=== PATIENT | female | born 1990 | race Caucasian/White ===

== ENCOUNTER → 2019-04-28 | Outpatient (REF) | payer OTHER, MEDICAID ==
[~2019-04-28] MED LIST: IBUP80TA PO; MAPA500T17 PO; MOTR200T44 PO; PRENTAB9 PO; TYLE167L PO
[2019-04-28 19:21] LABS: HEMATOCRIT 39.9 % (36.0-47.0); HEMOGLOBIN 12.9 g/dl (12.0-15.5); MEAN CORPUSCULAR HEMOGLOBIN 32.3 pg (27.0-33.0); MEAN CORPUSCULAR HGB CONC 32.3 g/dl (32.0-36.5); MEAN CORPUSCULAR VOLUME 99.8 fl (80.0-96.0); PLATELET COUNT, AUTOMATED 258 10^3/uL (150-450); WHITE BLOOD COUNT 11.3 10^3/uL (4.0-10.0)
[2019-04-30 11:07] LABS: HIV 1&2 SCREEN CENTAUR NEGATIVE (NEGATIVE); RUBELLA IgG QUALITATIVE IMMUNE (IMMUNE)
[2019-04-30 13:08] LABS: HEPATITIS C VIRUS ABY INDEX 0.1 INDEX (<0.8)
== END ==
LOC: M LAB REF 18:12
PROVIDERS: ATTEND Nurse Practitioner Women's Health
DX: Z34.82 Encounter for supervision of other normal pregnancy, second trimester (principal)

== ENCOUNTER → 2019-05-23 | Outpatient (CLI) | payer MEDICAID | LOC: M PLALAB 13:13 | PROVIDERS: ATTEND Nurse Practitioner Women's Health | DX: Z34.82 Encounter for supervision of other normal pregnancy, second trimester (principal) ==

== ENCOUNTER → 2019-07-02 | Outpatient (REF) | payer OTHER | LOC: M LAB REF 12:19 | PROVIDERS: ATTEND Obstetrics & Gynecology | DX: Z34.83 Encounter for supervision of other normal pregnancy, third trimester (principal) ==

== ENCOUNTER 2019-07-30 20:26 | Inpatient (IN) | payer OTHER ==
[~2019-07-30] VITALS: Ht 175.3 cm; Wt 107.4 kg
[2019-07-30 20:48] VITALS: BP 130/75
[2019-07-30] MEDS: LR 1,000 ML IV SCH (21:08)
[2019-07-30] MEDS ORDERED: LR 800 ML IV ONE (21:15)
[2019-07-30] MEDS ORDERED: miSOPROStol 50 MCG 1/2 TAB (S0191) PO ONE (21:15)
[2019-07-30 21:42] LABS: HEMATOCRIT 34.7 % (36.0-47.0); HEMOGLOBIN 11.5 g/dl (12.0-15.5); MEAN CORPUSCULAR HEMOGLOBIN 31.5 pg (27.0-33.0); MEAN CORPUSCULAR HGB CONC 33.1 g/dl (32.0-36.5); MEAN CORPUSCULAR VOLUME 95.1 fl (80.0-96.0); PLATELET COUNT, AUTOMATED 335 10^3/uL (150-450); RED BLOOD COUNT 3.65 10^6/uL (4.00-5.40); WHITE BLOOD COUNT 15.8 10^3/uL (4.0-10.0)
[2019-07-30 22:21] VITALS: BP 115/75
[2019-07-31] VITALS (58 sets, daily range): BP systolic 98–137; BP diastolic 56–84
[2019-07-31] MEDS ORDERED: miSOPROStol 50 MCG 1/2 TAB (S0191) PO SCH (02:00)
[2019-07-31] MEDS: LR 1,000 ML IV SCH ×4 (05:08→18:40)
[2019-07-31] MEDS ORDERED: OXYTOCIN DRIP 30 UNITS in IV 1 EA IV SCH ×2 (08:00→21:55)
[2019-07-31] MEDS ORDERED: FENTANYL 2MCG/ML ROPIVACAINE 0.2% IN 0.9% NACL 100ML IVBAG As Ordered ONE ×2 (11:08→19:10)
[2019-07-31] MEDS: FENTANYL/ROPIVACAINE/NACL BAG 100 ML EPIDURAL SCH ×2 (11:37→19:10)
[2019-07-31] MEDS ORDERED: EPIDURAL COMMENT XX SCH (12:15)
[2019-07-31] MEDS ORDERED: ePHEDrine SULFATE 25 MG/5 ML(5MG/ML) SYRINGE IV PRN (12:15)
[2019-07-31] MEDS ORDERED: ONDANSETRON 4MG/2ML VIAL (J2405) IV PRN (12:15)
[2019-07-31] MEDS ORDERED: diphenhydrAMINE INJ 50MG/ML VIAL (J1200) IV PRN (12:15)
[2019-07-31] MEDS ORDERED: EPIDURAL/PCA KEYS XX PRN (12:15)
[2019-07-31] MEDS ORDERED: NALOXONE INJ 0.4 MG/1 ML VIAL (J2310) IV PRN (12:15)
[2019-07-31] MEDS ORDERED: REFRIGERATOR IV KEYS XX PRN (12:15)
[2019-07-31] MEDS ORDERED: LACTATED RINGER'S 1000 ML IV PRN (12:15)
[2019-07-31] MEDS ORDERED: ACETAMINOPHEN TAB 650MG DOSE (2X325MG) PO PRN (22:00)
[2019-07-31] MEDS ORDERED: METHYLERGONOVINE MALEATE 0.2 MG TAB PO PRN (22:00)
[2019-07-31] MEDS ORDERED: IBUPROFEN 600 MG TAB PO PRN (22:00)
[2019-07-31] MEDS ORDERED: ACETAMINOPHEN 500 MG TAB PO PRN (22:00)
[2019-07-31] MEDS ORDERED: DIBUCAINE 1% OINTMENT 30GM TOP PRN (22:00)
[2019-07-31] MEDS ORDERED: IBUPROFEN 800 MG TAB PO PRN (22:00)
[2019-07-31] MEDS ORDERED: DOCUSATE SODIUM 100 MG CAP PO PRN (22:00)
[2019-07-31] MEDS ORDERED: ANUSOL HC CREAM 30GM TOP PRN (22:00)
[2019-07-31] MEDS ORDERED: MEASLES,MUMPS,RUBELLA VACCINE INJ (MMR-II) (90707) SC SCH (22:00)
[2019-07-31] MEDS ORDERED: RHOGAM 300 MCG (1500 IU) INJ (J2790) IM SCH (22:00)
[2019-07-31 22:02] LABS: CORD GAS ABE A -1.7; CORD GAS O2 SAT A 59.1 %; CORD GAS PH A 7.285 UNITS; CORD GAS SBC A 22.1 MEQ/L; CORD GAS TCO2 A 27.7 MEQ/L
[2019-07-31 22:05] LABS: CORD GAS HCO3 V 22.2 MEQ/L; CORD GAS O2 SAT V 81.7 %; CORD GAS PCO2 V 40.4 mmHg; CORD GAS PH V 7.358 UNITS; CORD GAS PO2 V 35.2 mmHg; CORD GAS SBC V 21.6 MEQ/L; CORD GAS TCO2 V 23.4 MEQ/L
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
[2019-08-01] VITALS: BP 118/58
[2019-08-01 06:00] VITALS: BP 101/53
[2019-08-01] MEDS: PRENATAL VITAMINS CHEWABLE TABLET PO SCH (08:47)
--- NOTE | 2019-08-01 08:52 | DN ---
DATE: 07/31/2019 Nadiya is a 29-year-old female 9, para 6-0-2-5, who was admitted at 39-2/7 weeks gestation for induction. She underwent two doses of Cytotec followed by artificial rupture of membranes and Pitocin augmentation. After an epidural, she progressed to fully dilated, delivered a live male infant in right occiput anterior position over an intact perineum. 9 and 9, weight 7 pounds 3 ounces. Placenta delivered spontaneously intact. Three-vessel cord. Perineum, vagina and cervix inspected. No laceration noted. Estimated blood loss 300 mL. Both mother and baby in stable condition.
[2019-08-01 18:00] VITALS: BP 112/69
[2019-08-02 06:00] VITALS: BP 116/65
[2019-08-02] MEDS: PRENATAL VITAMINS CHEWABLE TABLET PO SCH (08:49)
[2019-08-02] MEDS ORDERED: INFLUENZA QUADRIVALENT PF VACCINE 0.5ML SYRINGE (90686) IM ONE (09:00)
[2019-08-02] MEDS ORDERED: ADACEL/BOOSTRIX VACCINE (DIPHTH/PERTUSS/ACELL/TETANUS)0.5ML SYR (90715) IM ONE (09:00)
== END 2019-08-02 13:05 | disposition home or self-care (01) | DRG 560 ==
LOC: M LDI 20:26 → M OBS 07-31 23:51
PROVIDERS: ADMIT Obstetrics & Gynecology; ATTEND Obstetrics & Gynecology
PROC: 3E0P7GC Introduction of Other Therapeutic Substance into Female Reproductive, Via Natural or Artificial Opening (ICD-10-PCS; 2019-07-30)
PROC: 10E0XZZ Delivery of Products of Conception, External Approach (ICD-10-PCS; principal; 2019-07-31)
PROC: 10907ZC Drainage of Amniotic Fluid, Therapeutic from Products of Conception, Via Natural or Artificial Opening (ICD-10-PCS; 2019-07-31)
DX: O99.334 Smoking (tobacco) complicating childbirth (principal); Z3A.39 39 weeks gestation of pregnancy; F17.210 Nicotine dependence, cigarettes, uncomplicated; Z37.0 Single live birth

== ENCOUNTER → 2020-05-25 | Outpatient (REF) | payer OTHER ==
[2020-05-25 13:39] LABS: HEMATOCRIT 42.9 % (36.0-47.0); HEMOGLOBIN 14.1 g/dl (12.0-15.5); MEAN CORPUSCULAR HEMOGLOBIN 31.4 pg (27.0-33.0); MEAN CORPUSCULAR HGB CONC 32.9 g/dl (32.0-36.5); MEAN CORPUSCULAR VOLUME 95.5 fl (80.0-96.0); PLATELET COUNT, AUTOMATED 250 10^3/uL (150-450); RED BLOOD COUNT 4.49 10^6/uL (4.00-5.40); WHITE BLOOD COUNT 10.4 10^3/uL (4.0-10.0)
[2020-05-25 15:20] LABS: HEPATITIS C VIRUS ABY INDEX 0.1 INDEX (<0.8); HIV 1&2 SCREEN CENTAUR NEGATIVE (NEGATIVE)
== END ==
LOC: M PLALAB 11:53
PROVIDERS: ATTEND Obstetrics & Gynecology
DX: O99.212 Obesity complicating pregnancy, second trimester (principal)

== ENCOUNTER → 2020-06-03 | Outpatient (CLI) | payer OTHER ==
--- NOTE | 2020-06-04 06:21 | REP ---
INDICATION: ANATOMY COMPARISON: None. TECHNIQUE: Transabdominal obstetrical ultrasound with color Doppler evaluation. FINDINGS: Examination demonstrates a single live intrauterine in transverse presentation. motion is identified by technologist. Placenta is noted anterior and grade 1 without evidence for placenta previa or abruption. Amniotic fluid volume is normal. Cervix measures 3.5 cm in length and appears closed.. Gestational age by LMP 18 weeks 4 days with ELLY 10/31/2020. Gestational age by current measurements 18 weeks 4 days with ELLY 10/31/2020. FHR equals 149 beats per minute. BPD: 4.1 cm 18 weeks 3 days HC: 15.2 cm there is 18 weeks 1 day AC: 12.9 cm 18 weeks 3 days FL: 2.8 cm 18 weeks 3 days HL: 2.9 cm 19 weeks 2 days HC/AC: 1.17 Estimated weight 240 grams (37thpercentile). Anatomical assessment demonstrates normal structures including cranium, choroid plexus, cavum, cerebellum/posterior fossa, facial features, lungs, four-chamber heart/ventricular outflow tracts, diaphragm, stomach, cord insertion/three-vessel cord, kidneys/bladder, spine, and extremities. IMPRESSION: Single live intrauterine in transverse lie demonstrating appropriate interval growth. Anatomical assessment is complete and normal. <Electronically signed by Malvin Dickson > 06/04/20 [id number]
== END ==
LOC: M WHC 09:38
PROVIDERS: ATTEND Advanced Practice Midwife
DX: Z36.9 Encounter for antenatal screening, unspecified (principal); Z3A.18 18 weeks gestation of pregnancy

== ENCOUNTER → 2020-07-22 | Outpatient (REF) | payer OTHER | LOC: M SFHCWAGY 16:56 | PROVIDERS: ATTEND Obstetrics & Gynecology | DX: Z34.92 Encounter for supervision of normal pregnancy, unspecified, second trimester (principal) ==

== ENCOUNTER → 2020-08-20 | Outpatient (REF) | payer OTHER ==
[2020-08-20 14:04] LABS: HEMATOCRIT 37.6 % (36.0-47.0); HEMOGLOBIN 12.4 g/dl (12.0-15.5); MEAN CORPUSCULAR HEMOGLOBIN 32.1 pg (27.0-33.0); MEAN CORPUSCULAR VOLUME 97.4 fl (80.0-96.0); PLATELET COUNT, AUTOMATED 288 10^3/uL (150-450); RED BLOOD COUNT 3.86 10^6/uL (4.00-5.40); WHITE BLOOD COUNT 13.4 10^3/uL (4.0-10.0)
== END ==
LOC: M PLALAB 10:54
PROVIDERS: ATTEND Obstetrics & Gynecology
DX: Z36.89 Encounter for other specified antenatal screening (principal); Z3A.00 Weeks of gestation of pregnancy not specified

== ENCOUNTER → 2020-09-01 | Outpatient (CLI) | payer OTHER | LOC: M LAB 08:08 | PROVIDERS: ATTEND Obstetrics & Gynecology | DX: Z34.82 Encounter for supervision of other normal pregnancy, second trimester (principal) ==

== ENCOUNTER → 2020-09-27 | Outpatient (REF) | payer OTHER | LOC: M PLALAB 15:29 | PROVIDERS: ATTEND Obstetrics & Gynecology | DX: Z34.83 Encounter for supervision of other normal pregnancy, third trimester (principal); Z3A.35 35 weeks gestation of pregnancy ==

== ENCOUNTER → 2020-10-13 | Outpatient (CLI) | payer OTHER ==
--- NOTE | 2020-10-13 14:02 | REP ---
INDICATION: GROWTH EVALUATION COMPARISON: None. TECHNIQUE: Transabdominal obstetrical ultrasound with color Doppler evaluation. FINDINGS: Examination demonstrates a single live intrauterine in cephalic presentation. motion is identified by technologist. Placenta is noted anterior and grade 2 without evidence for placenta previa or abruption. Amniotic fluid volume is normal. Cervix measures 3.3 cm in length and appears closed.. Gestational age by LMP and 1st U/S 37 weeks 3 days with ELLY 10/31/2020. Gestational age by current measurements 38 weeks 0 days with ELLY is 10/27/2020. FHR equals 139 beats per minute. BPD: 9.3 cm at 38 weeks 0 days HC: 33.6 cm at 38 weeks 4 days AC: 34.1 cm at 30 weeks 0 days FL: 7.3 cm at 37 weeks 4 days HL: 6.5 cm at 37 weeks 5 days HC/AC: 0.99 Estimated weight 3358 grams (72ndpercentile). JACOB: 15.6 cm Umbilical artery SD ratio: 1.89, 2.31 (1.57-3.40) IMPRESSION: Single live advanced gestation in cephalic presentation demonstrating appropriate estimated weight and growth. <Electronically signed by Malvin Dickson > 10/13/20 [id number]
== END ==
LOC: M WHC 13:10
PROVIDERS: ATTEND Obstetrics & Gynecology
DX: Z36.9 Encounter for antenatal screening, unspecified (principal); Z3A.38 38 weeks gestation of pregnancy

== ENCOUNTER 2020-10-24 08:26 | Inpatient (IN) | payer OTHER ==
[~2020-10-24] VITALS: Ht 175.3 cm; Wt 116.3 kg
[2020-10-24] VITALS (29 sets, daily range): BP systolic 103–146; BP diastolic 54–87
[2020-10-24] MEDS ORDERED: OXYTOCIN DRIP 30 UNITS in IV 1 EA IV SCH (10:15)
[2020-10-24 10:41] LABS: HEMATOCRIT 33.7 % (36.0-47.0); MEAN CORPUSCULAR HGB CONC 32.6 g/dl (32.0-36.5); MEAN CORPUSCULAR VOLUME 94.9 fl (80.0-96.0); PLATELET COUNT, AUTOMATED 306 10^3/uL (150-450); RED BLOOD COUNT 3.55 10^6/uL (4.00-5.40); WHITE BLOOD COUNT 12.9 10^3/uL (4.0-10.0)
[2020-10-24] MEDS: LR 1,000 ML IV SCH ×2 (10:42→18:15)
--- NOTE | 2020-10-24 13:59 | HPEPDOC ---
Obstetrical History & Physical General Date of Admission Oct 24, 2020 at 08:26 History of Present Illness 30-year-old 9 para 6 who presents at 39 weeks 0 days for induction labor. course was complicated by A1 gestational diabetes. Patient also has had tobacco use throughout Chief Complaint: Induction of labor Information Provided By: Patient Age: 30 : 9 Livin Care Care: Good Care Dating Final EDC: Oct 31, 2020 Final EDC by: LMP EGA at Admission: 39 Past Medical History Past Obstetrical History #1: Date of Delivery: Dec 05, 2005 Type of Delivery: Spontaneous Vaginal Del. Sex of Infant: Female Complications: No Past Obstetrical History #2: Date of Delivery: Apr 02, 2011 Type of Delivery: Spontaneous Vaginal Del. Sex of : Female Past Obstetrical History #3: Date of Delivery: Dec 02, 2012 Type of Delivery: Spontaneous Vaginal Del. Sex of : Male Complications: No Past Obstetrical History #4: Date of Delivery: Dec 15, 2013 Type of Delivery: Spontaneous Vaginal Del. Sex of Infant: Female Complications: No Past Obstetrical History #5: Date of Delivery: Feb 08, 2015 Type of Delivery: Spontaneous Vaginal Del. Sex of Infant: Female Past Obstetrical History #6: Date of Delivery: Feb 01, 2016 Type of Delivery: Spontaneous Vaginal Del. Sex of Infant: Female Complications: No Past Obstetrical History #7: Date of Delivery: Jul 31, 2019 Type of Delivery: Spontaneous Vaginal Del. 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 BREAST: . ABDOMEN: Gravid and non-tender to touch. FETUS: Is vertex (VTX) by sterile vaginal examination (SVE), fetus is vertex (VTX) by Bruce. HEART RATE: Regular rate and rhythm. LUNGS: Clear to auscultation (CTA). Vital Signs/I&O Vital Signs Date Time Temp Pulse Resp B/P (MAP) Pulse Ox O2 Delivery O2 Flow Rate FiO2 10/24/20 13:19 97.8 93 18 108/57 (74) Laboratory Data 24H LABS Laboratory Tests 2 10/24/20 08:46: Serology Scanned Report Hepatitis B Testing 10/24/20 10:27: Nucleated Red Blood Cells % (auto) 0.0 10/24/20 10:36: Bedside Glucose (Misc Panel) 89 CBC/BMP Laboratory Tests 10/24/20 10:27 Pertinent Laboratoy Data Blood Type: O- RBC Antibody Screen: Negative HIV: Negative Hepatitis B: Negative Hepatitis C: Negative Rapid Plasma Reagin: Nonreactive Rubella: Immune Chlamydia/Gonorrhea: Negative Group B Streptococcus: Negative Glucose Tolerance Test: 142 (Abnormal 3 hour glucose tolerance test) Anatomy Ultrasound Placenta Location: Anterior Normal Anatomy: Yes Placenta Previa: No Vaginal Examination Dilation: 2cm Effacement: 50% Station: -3 Cervical Consistency: Medium Cervical Position: Middle Presentation: Cephalic presentation Assessment Variability: Moderate Tocometer Contractions: No Assessment/Plan Assessment 30-year-old 9 para 6 at 39 weeks 0 days here for induction labor A2 gestational diabetes Reassuring status Plan 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 Patient and thoroughly counseled for induction labor. Discussed medications also procedures performed in labor and delivery. She's been verbally consented for em ergency surgery blood products anesthesia and desires to proceed with induction. Will initiate her induction labor with Pitocin. Group B Streptococcus (GBS) negative. Labs and intravenous (IV) per unit protocol. Anticipate normal spontaneous delivery (). C-S as appropriate. MACHELLE SHERIFF MD. Oct 24, 2020 13:59
[2020-10-24] MEDS ORDERED: BUTORPHANOL 2 MG/ML INJ (J0595) IV ONE (23:30)
[2020-10-24] MEDS ORDERED: PROMETHAZINE INJ 25 MG/ML VIAL (J2550) IV PRN (23:30)
[2020-10-25] VITALS (28 sets, daily range): BP systolic 111–144; BP diastolic 58–97
[2020-10-25] MEDS: LR 1,000 ML IV SCH ×3 (01:35→06:16)
[2020-10-25] MEDS ORDERED: FENTANYL 2MCG/ML ROPIVACAINE 0.2% IN 0.9% NACL 100ML IVBAG As Ordered ONE (03:32)
[2020-10-25] MEDS ORDERED: NALOXONE INJ 0.4MG/1ML VIAL (J2310 PER 1MG) IV PRN (05:25)
[2020-10-25] MEDS ORDERED: FENTANYL/ROPIVACAINE/NACL BAG 100 ML EPIDURAL SCH (05:25)
[2020-10-25] MEDS ORDERED: EPIDURAL/PCA KEYS XX PRN (05:25)
[2020-10-25] MEDS ORDERED: EPIDURAL COMMENT XX SCH (05:25)
[2020-10-25] MEDS ORDERED: diphenhydrAMINE 50MG/ML VIAL (J1200) IV PRN (05:25)
[2020-10-25] MEDS ORDERED: LACTATED RINGER'S 1000 ML IV PRN (05:25)
[2020-10-25] MEDS ORDERED: REFRIGERATOR IV KEYS XX PRN (05:25)
[2020-10-25] MEDS ORDERED: ePHEDrine SULFATE 25 MG/5 ML(5MG/ML) SYRINGE IV PRN (05:25)
[2020-10-25] MEDS ORDERED: ONDANSETRON 4MG/2ML VIAL IV PRN (05:25)
[2020-10-25] MEDS ORDERED: DOCUSATE SODIUM 100MG CAPSULE PO PRN (07:25)
[2020-10-25] MEDS ORDERED: METHYLERGONOVINE MALEATE 0.2 MG TAB PO PRN (07:25)
[2020-10-25] MEDS ORDERED: DIBUCAINE 1% OINTMENT 30GM TOP PRN (07:25)
[2020-10-25] MEDS ORDERED: IBUPROFEN 800 MG TAB PO PRN (07:25)
[2020-10-25] MEDS ORDERED: ACETAMINOPHEN 500 MG TAB PO PRN (07:25)
[2020-10-25] MEDS ORDERED: ANUSOL HC CREAM 30GM TOP PRN (07:25)
[2020-10-25] MEDS ORDERED: RHOGAM 300 MCG (1500 IU) INJ (J2790) IM SCH (07:25)
[2020-10-25] MEDS ORDERED: ACETAMINOPHEN TAB 650MG DOSE (2X325MG) PO PRN (07:25)
[2020-10-25] MEDS ORDERED: IBUPROFEN 600MG TAB PO PRN (07:25)
[2020-10-25] MEDS ORDERED: MEASLES,MUMPS,RUBELLA VACCINE INJ (MMR-II) (90707) SC SCH (07:25)
--- NOTE | 2020-10-25 07:41 | DNPDOC ---
[facility] Delivery Note Delivery Note DATE OF DELIVERY: 10/25/20 at 0704 PREDELIVERY DIAGNOSIS-39 1/7 weeks' gestation and induction of labor. POST DELIVERY DIAGNOSIS: Delivered. PROCEDURE: Spontaneous vaginal delivery. BROADBAND TECHNICIAN: Shubham Barnett CNM, ANDREA ANESTHESIA: epidural. ESTIMATED BLOOD LOSS: 400 mL. FINDINGS: 7 pounds 11 ounces; 3480 grams; male , Score 8/9, nuchal cord times 1 loose, GDM. DELIVERY SUMMARY: Nadiya is a 30-year-old female who is now a who presented to L&D for an induction of labor. She progressed to fully dilated at 0655 and pushed to a living male in the TUCKER position with restitution to ROT. A nuchal cord was noted and reduced. the anterior shoulder delivered with ease and the corpus immediately followed. The baby was placed [id number] active and crying. The cord was clamped after pulsation ceased and cut by the FOB. A 3- vessel cord was noted. The placenta delivered spontaneously and intact at 0713. Uterine hemostasis was achieved via rapid infusion of IV Pitocin and fundal massage. The vagina, cervix, and perineum was inspected and found to be intact. Mom plans to breastfeed. They plan on naming him Dillon. Both mom and baby are in stable condition. All counts of instruments and sponges are correct. SHUBHAM BARNETT CNM Oct 25, 2020 07:41
[2020-10-25] MEDS ORDERED: METHYLERGONOVINE MALEATE 0.2 MG/ML VIAL (J2210) IM STA (08:13)
[2020-10-25] MEDS: PRENATAL VITAMINS CHEWABLE TABLET PO SCH (11:00)
[2020-10-26 06:00] VITALS: BP 118/64
[2020-10-26] MEDS ORDERED: IBUP80TA PO (07:42)
[2020-10-26] MEDS ORDERED: ACET-683 PO (07:42)
[2020-10-26] MEDS: PRENATAL VITAMINS CHEWABLE TABLET PO SCH (12:13)
[2020-10-26 17:49] VITALS: BP 136/79
== END 2020-10-26 19:25 | disposition home or self-care (01) | DRG 560 ==
LOC: M LDI 08:26 → M OBS 10-25 09:58
PROVIDERS: ADMIT Obstetrics & Gynecology; ATTEND Advanced Practice Midwife
PROC: 3E033VJ Introduction of Other Hormone into Peripheral Vein, Percutaneous Approach (ICD-10-PCS; 2020-10-24)
PROC: 10E0XZZ Delivery of Products of Conception, External Approach (ICD-10-PCS; principal; 2020-10-25)
DX: O24.420 Gestational diabetes mellitus in childbirth, diet controlled (principal); Z3A.39 39 weeks gestation of pregnancy; O99.334 Smoking (tobacco) complicating childbirth; F17.210 Nicotine dependence, cigarettes, uncomplicated; O69.81X0 Labor and delivery complicated by cord around neck, without compression, not applicable or unspecified; Z37.0 Single live birth